=== PATIENT | female | born 1960 | race Caucasian/White ===

== ENCOUNTER 2019-04-20 08:02 | Day surgery (SDC) | payer OTHER ==
[~2019-04-20] VITALS: Ht 154.9 cm; Wt 61.2 kg
[2019-04-20] MEDS ORDERED: fentaNYL 0.05 MG/ML VIAL ONE (12:04)
[2019-04-20] MEDS ORDERED: LIDOCAINE 2% 100 MG/5 ML UJET TP ONE (12:04)
[2019-04-20] MEDS ORDERED: fentaNYL 0.05 MG/ML VIAL IVP ONE (12:45)
== END 2019-04-20 12:43 | disposition home or self-care (01) ==
LOC: MOR 08:02 → MMU 08:02 → MOR 12:43
PROVIDERS: ATTEND Internal Medicine Gastroenterology
DX: Z12.11 Encounter for screening for malignant neoplasm of colon (principal); K64.4 Residual hemorrhoidal skin tags; Z88.0 Allergy status to penicillin
CPT/HCPCS: 45378; J3010